=== PATIENT | male | born 1975 | race Caucasian/White ===

== ENCOUNTER 2021-06-21 05:11 | Inpatient (IN) | payer BC, OTHER ==
[~2021-06-21] VITALS: Ht 177.8 cm; Wt 101.2 kg
[2021-06-21 08:01] LABS: Basophils # (auto) 0 10 ^3/uL (0-0.2); Basophils % (auto) 0.4 % (0.0-2.0); Eosinophils # (auto) 0 10 ^3/uL (0-0.8); Eosinophils % (auto) 0.1 % (0.0-7.0); Hemoglobin 13.3 g/dL (13.5-17.5); Lymphocytes # (auto) 0.7 10 ^3/uL (0.4-5.4); Mean Corpuscular Hemoglobin 31.3 pg (28.0-32.0); Mean Corpuscular Volume 85.9 fL (80.0-100.0); Monocytes # (auto) 0.2 10 ^3/uL (0-1.3); Monocytes % (auto) 3.7 % (0.0-12.0); Neutrophils % (auto) 80.8 % (37.0-80.0); Nucleated Red Blood Cells % 0.4 %; Red Blood Cells 4.26 10^6/uL (4.5-5.90); Red Cell Distribution Width 13.4 % (11.8-14.3); White Blood Cell 4.9 10^3/uL (4.4-10.8)
[2021-06-21 08:05] LABS: Hematocrit 37.6 % (41.0-53.0)
[2021-06-21] MEDS ORDERED: ONDANSETRON HCL 4 MG/2 ML VIAL IV ONE (08:15)
[2021-06-21] MEDS ORDERED: cefTRIAXone 1GM/50ML D5W 50 ML IV ONE (08:15)
[2021-06-21] MEDS ORDERED: MORPHINE SULFATE 4 MG/ML SYR/VIAL IV ONE (08:15)
[2021-06-21] MEDS ORDERED: AZITHROMYCIN 500MG/ 250ML 250 ML IV ONE (08:15)
[2021-06-21 08:20] LABS: Albumin 2.8 g/dL (3.4-5.0); Calcium 7.3 mg/dL (8.5-10.1); Potassium 3.2 mmol/L (3.5-5.1)
[2021-06-21 08:25] LABS: BUN/Creatinine Ratio 16.2; Bilirubin, Total 0.6 mg/dL (0.2-1.0)
[2021-06-21] MEDS ORDERED: ACETAMINOPHEN 500 MG TAB PO ONE (12:00)
[2021-06-21] MEDS ORDERED: DexAMETHasone SOD PHOS 10MG/1ML VIAL INJ IV ONE (12:45)
[2021-06-21] MEDS ORDERED: PANTOPRAZOLE 40 MG/10 ML VIAL INJ IV ONE (17:45)
[2021-06-21] MEDS ORDERED: REMDESIVIR PER PHARMACY 0 ML IV SCH (21:00)
[2021-06-21] MEDS ORDERED: ACETAMINOPHEN 500 MG TAB PO PRN (21:00)
[2021-06-21] MEDS ORDERED: ONDANSETRON HCL 4 MG/2 ML VIAL IV PRN (21:00)
[2021-06-21] MEDS ORDERED: TEMAZEPAM 15 MG CAP PO PRN ×2 (21:00→22:45)
[2021-06-21] MEDS ORDERED: NITROGLYCERIN 0.4 MG SL TAB SL PRN (22:45)
[2021-06-21] MEDS ORDERED: MORPHINE SULFATE INJECTION 2 MG/ML SYRG IV PRN (22:45)
[2021-06-22] VITALS (7 sets, daily range): BP systolic 93–124; BP diastolic 50–76
[2021-06-22] MEDS ORDERED: HYDROcodone-ACET 5/325MG TAB PO PRN (01:15)
[2021-06-22] MEDS: ENOXAPARIN SOD 40 MG/0.4 ML SYRINGE SC SCH ×3 (02:03→21:31)
[2021-06-22] MEDS: HYDROcodone-ACET 5/325MG TAB PO PRN (02:04)
[2021-06-22 05:06] LABS: Basophils # (auto) 0.1 10 ^3/uL (0-0.2); Basophils % (auto) 1.1 % (0.0-2.0); Eosinophils # (auto) 0 10 ^3/uL (0-0.8); Eosinophils % (auto) 0.1 % (0.0-7.0); Hematocrit 39.2 % (41.0-53.0); Hemoglobin 13.5 g/dL (13.5-17.5); Lymphocytes # (auto) 0.6 10 ^3/uL (0.4-5.4); Lymphocytes % (auto) 11.6 % (10.0-50.0); Mean Corpuscular Hemoglobin 30.1 pg (28.0-32.0); Mean Corpuscular Hgb Conc. 34.5 g/dL (32.0-36.0); Mean Corpuscular Volume 87.3 fL (80.0-100.0); Monocytes # (auto) 0.3 10 ^3/uL (0-1.3); Monocytes % (auto) 6.5 % (0.0-12.0); Neutrophils # (auto) 3.9 10 ^3/uL (1.6-8.6); Neutrophils % (auto) 80.7 % (37.0-80.0); Nucleated Red Blood Cells % 0.2 %; Red Blood Cells 4.49 10^6/uL (4.5-5.90); Red Cell Distribution Width 13.4 % (11.8-14.3); White Blood Cell 4.8 10^3/uL (4.4-10.8)
[2021-06-22 05:27] LABS: Albumin 2.8 g/dL (3.4-5.0); Calcium 7.3 mg/dL (8.5-10.1); Potassium 3.7 mmol/L (3.5-5.1)
[2021-06-22 05:31] LABS: Bilirubin, Total 0.6 mg/dL (0.2-1.0); Total Protein 5.7 g/dL (6.4-8.2)
[2021-06-22] MEDS ORDERED: PRE1T PO (06:56)
[2021-06-22] MEDS ORDERED: AZIT250T9 PO (06:56)
[2021-06-22] MEDS ORDERED: CEFU500T43 PO (06:56)
[2021-06-22] MEDS ORDERED: cefTRIAXone 1GM/50ML D5W 50 ML IV SCH (09:00)
[2021-06-22] MEDS ORDERED: REMDESIVIR 200 MG in NS 210ml LOADING DOSE ADULT IV ONE (09:30)
[2021-06-22] MEDS: DexAMETHasone SOD PHOS 10MG/1ML VIAL INJ IV SCH (09:44)
[2021-06-22] MEDS: PANTOPRAZOLE 40 MG TAB PO SCH (09:44)
[2021-06-22] MEDS: ZINC SULFATE 220mg CAP or TAB PO SCH (09:44)
[2021-06-22] MEDS: CHOLECALCIFEROL (VITD3) 2,000 UNIT CAP/TAB PO SCH (09:45)
[2021-06-22] MEDS: IVERMECTIN 3 MG TAB PO SCH (09:45)
[2021-06-22] MEDS: ASCORBIC ACID 1,000 MG TAB PO SCH (09:45)
[2021-06-22] MEDS ORDERED: AZITHROMYCIN 500MG/ 250ML 250 ML IV SCH (10:00)
[2021-06-22] MEDS ORDERED: cefTRIAXone 1GM/50ML D5W 50 ML IV ONE (10:30)
[2021-06-22] MEDS ORDERED: MORPHINE SULFATE INJECTION 2 MG/ML SYRG IV ONE (11:15)
[2021-06-22] MEDS ORDERED: AZITHROMYCIN 500MG/ 250ML 250 ML IV ONE (11:30)
[2021-06-22] MEDS: MORPHINE SULFATE INJECTION 2 MG/ML SYRG IV PRN ×2 (16:55→21:33)
[2021-06-22] MEDS: ALBUTEROL SULF HFA 90MCG INH 200DOSE IN PRN (20:30)
[2021-06-23] MEDS: MORPHINE SULFATE INJECTION 2 MG/ML SYRG IV PRN ×6 (01:35→22:19)
[2021-06-23 05:00] VITALS: BP 107/70
[2021-06-23 06:28] LABS: Potassium 3.9 mmol/L (3.5-5.1)
[2021-06-23 06:35] LABS: Albumin 2.6 g/dL (3.4-5.0); BUN/Creatinine Ratio 23.1
[2021-06-23 06:37] LABS: Bilirubin, Total 0.6 mg/dL (0.2-1.0); Total Protein 5.4 g/dL (6.4-8.2)
[2021-06-23 09:00] VITALS: BP 104/71
[2021-06-23] MEDS: ALBUTEROL SULF HFA 90MCG INH 200DOSE IN PRN ×2 (09:10→22:06)
[2021-06-23] MEDS: cefTRIAXone 1GM/50ML D5W 50 ML IV SCH (09:21)
[2021-06-23] MEDS: DexAMETHasone SOD PHOS 10MG/1ML VIAL INJ IV SCH (09:21)
[2021-06-23] MEDS: ENOXAPARIN SOD 40 MG/0.4 ML SYRINGE SC SCH ×2 (09:22→22:20)
[2021-06-23] MEDS: ZINC SULFATE 220mg CAP or TAB PO SCH (09:22)
[2021-06-23] MEDS: IVERMECTIN 3 MG TAB PO SCH (09:22)
[2021-06-23] MEDS: CHOLECALCIFEROL (VITD3) 2,000 UNIT CAP/TAB PO SCH (09:22)
[2021-06-23] MEDS: PANTOPRAZOLE 40 MG TAB PO SCH (09:22)
[2021-06-23] MEDS: ASCORBIC ACID 1,000 MG TAB PO SCH (09:22)
[2021-06-23] MEDS: AZITHROMYCIN 500MG/ 250ML 250 ML IV SCH (09:56)
[2021-06-23 13:00] VITALS: BP 106/71
[2021-06-23] MEDS: REMDESIVIR 100mg 100 MG in SODIUM CHL 0.9% 230 ML IV SCH (15:21)
[2021-06-23 17:00] VITALS: BP 114/79
[2021-06-23] MEDS: PROMETHAZINE W/CODEINE 5 ML ORAL SYRUP PO PRN (17:52)
[2021-06-23 22:00] VITALS: BP 104/65
[2021-06-24] MEDS: MORPHINE SULFATE INJECTION 2 MG/ML SYRG IV PRN ×3 (02:13→10:41)
[2021-06-24] MEDS: PROMETHAZINE W/CODEINE 5 ML ORAL SYRUP PO PRN ×2 (04:28→09:35)
[2021-06-24 05:00] VITALS: BP 105/61
[2021-06-24 06:13] LABS: Potassium 3.8 mmol/L (3.5-5.1)
[2021-06-24 06:25] LABS: Albumin 2.5 g/dL (3.4-5.0); BUN/Creatinine Ratio 20.9; Calcium 7.8 mg/dL (8.5-10.1)
[2021-06-24 06:27] LABS: Bilirubin, Total 0.7 mg/dL (0.2-1.0); Total Protein 5.4 g/dL (6.4-8.2)
[2021-06-24 09:00] VITALS: BP 108/66
[2021-06-24] MEDS: cefTRIAXone 1GM/50ML D5W 50 ML IV SCH (09:16)
[2021-06-24] MEDS: DexAMETHasone SOD PHOS 10MG/1ML VIAL INJ IV SCH (09:16)
[2021-06-24] MEDS: ASCORBIC ACID 1,000 MG TAB PO SCH (09:17)
[2021-06-24] MEDS: CHOLECALCIFEROL (VITD3) 2,000 UNIT CAP/TAB PO SCH (09:17)
[2021-06-24] MEDS: ZINC SULFATE 220mg CAP or TAB PO SCH (09:17)
[2021-06-24] MEDS: ENOXAPARIN SOD 40 MG/0.4 ML SYRINGE SC SCH (09:17)
[2021-06-24] MEDS: PANTOPRAZOLE 40 MG TAB PO SCH (09:17)
[2021-06-24] MEDS: IVERMECTIN 3 MG TAB PO SCH (09:17)
[2021-06-24] MEDS: AZITHROMYCIN 500MG/ 250ML 250 ML IV SCH (10:41)
[2021-06-24] MEDS ORDERED: ENOXAPARIN SOD 100 MG/1 ML SYRINGE SC ONE (12:30)
[2021-06-24] MEDS ORDERED: PANTOPRAZOLE 40 MG/10 ML VIAL INJ IV ONE (12:30)
[2021-06-24] MEDS ORDERED: BUDESONIDE (INHALATION) 0.5 MG/2 ML NEB NEB ONE (12:30)
[2021-06-24 13:00] VITALS: BP 116/72
[2021-06-24 14:32] LABS: Urine Bacteria NONE SEEN /hpf (None Seen); Urine Blood Negative /uL (Negative); Urine Specific Gravity 1.046 (1.001-1.035); Urine WBC 2 /hpf (0 - 3)
[2021-06-24] MEDS: HYDROmorphone HCL 2 MG/ML VL IV PRN ×2 (15:00→19:52)
[2021-06-24] MEDS: REMDESIVIR 100mg 100 MG in SODIUM CHL 0.9% 230 ML IV SCH (15:21)
[2021-06-24 17:00] VITALS: BP 113/72
[2021-06-24] MEDS: HYDROcodone-ACET 5/325MG TAB PO PRN (17:24)
[2021-06-24] MEDS: LIDOCAINE 5% TOPICAL PATCH TOP SCH (17:24)
[2021-06-24] MEDS ORDERED: TOCILIZUMAB 400 MG in SODIUM CHL 0.9% 80 ML IV ONE (20:00)
[2021-06-24] MEDS: ENOXAPARIN SOD 60 MG/0.6 ML SYRINGE SC SCH (21:12)
[2021-06-24 22:00] VITALS: BP 113/66
[2021-06-24] MEDS ORDERED: BUDESONIDE (INHALATION) 0.5 MG/2 ML NEB NEB SCH (22:00)
[2021-06-24] MEDS ORDERED: ENOXAPARIN SOD 100 MG/1 ML SYRINGE SC SCH (22:00)
[2021-06-24] MEDS: ALBUTEROL SULF HFA 90MCG INH 200DOSE IN PRN (22:21)
[2021-06-24] MEDS: BUDESONIDE (INHALATION) 180 MCG IH IN SCH (22:21)
[2021-06-25] MEDS: HYDROmorphone HCL 2 MG/ML VL IV PRN ×7 (00:12→23:16)
[2021-06-25 05:00] VITALS: BP 110/64
[2021-06-25] MEDS: BUDESONIDE (INHALATION) 180 MCG IH IN SCH ×2 (05:55→20:46)
[2021-06-25] MEDS: ALBUTEROL SULF HFA 90MCG INH 200DOSE IN PRN ×2 (05:55→20:46)
[2021-06-25 06:10] LABS: Basophils # (auto) 0 10 ^3/uL (0-0.2); Eosinophils # (auto) 0 10 ^3/uL (0-0.8); Eosinophils % (auto) 0.5 % (0.0-7.0); Lymphocytes # (auto) 0.9 10 ^3/uL (0.4-5.4); Mean Corpuscular Volume 88.8 fL (80.0-100.0); Neutrophils # (auto) 3.8 10 ^3/uL (1.6-8.6); White Blood Cell 5.1 10^3/uL (4.4-10.8)
[2021-06-25 06:12] LABS: Basophils % (auto) 0.3 % (0.0-2.0); Hematocrit 35.4 % (41.0-53.0); Hemoglobin 12.9 g/dL (13.5-17.5); Lymphocytes % (auto) 18.1 % (10.0-50.0); Mean Corpuscular Hemoglobin 32.4 pg (28.0-32.0); Monocytes # (auto) 0.4 10 ^3/uL (0-1.3); Neutrophils % (auto) 74.1 % (37.0-80.0); Nucleated Red Blood Cells % 0.2 %; Red Blood Cells 3.99 10^6/uL (4.5-5.90); Red Cell Distribution Width 13.4 % (11.8-14.3)
[2021-06-25 06:27] LABS: Mean Corpuscular Hgb Conc. 36.5 g/dL (32.0-36.0)
[2021-06-25 06:38] LABS: Albumin 2.5 g/dL (3.4-5.0); Calcium 7.8 mg/dL (8.5-10.1)
[2021-06-25 06:41] LABS: BUN/Creatinine Ratio 21.3
[2021-06-25 06:44] LABS: Bilirubin, Total 0.7 mg/dL (0.2-1.0); Total Protein 5.2 g/dL (6.4-8.2)
[2021-06-25 09:00] VITALS: BP 122/83
[2021-06-25] MEDS: DexAMETHasone SOD PHOS 10MG/1ML VIAL INJ IV SCH (09:11)
[2021-06-25] MEDS: cefTRIAXone 1GM/50ML D5W 50 ML IV SCH (09:11)
[2021-06-25] MEDS: PANTOPRAZOLE 40 MG/10 ML VIAL INJ IV SCH (09:12)
[2021-06-25] MEDS: ZINC SULFATE 220mg CAP or TAB PO SCH (09:12)
[2021-06-25] MEDS: CHOLECALCIFEROL (VITD3) 2,000 UNIT CAP/TAB PO SCH (09:12)
[2021-06-25] MEDS: IVERMECTIN 3 MG TAB PO SCH (09:12)
[2021-06-25] MEDS: ASCORBIC ACID 1,000 MG TAB PO SCH (09:12)
[2021-06-25] MEDS: LIDOCAINE 5% TOPICAL PATCH TOP SCH (09:13)
[2021-06-25] MEDS: ENOXAPARIN SOD 60 MG/0.6 ML SYRINGE SC SCH ×2 (09:13→21:55)
[2021-06-25] MEDS: AZITHROMYCIN 500MG/ 250ML 250 ML IV SCH (10:14)
[2021-06-25] MEDS ORDERED: DOCUSATE SOD 100 MG CAP PO ONE (12:00)
[2021-06-25] MEDS ORDERED: FUROSEMIDE 20 MG/2 ML VIAL IV ONE (12:15)
[2021-06-25] MEDS ORDERED: POTASSIUM CHL 20 Meq TABLET PO ONE (12:15)
[2021-06-25 13:00] VITALS: BP 127/81
[2021-06-25] MEDS: REMDESIVIR 100mg 100 MG in SODIUM CHL 0.9% 230 ML IV SCH (15:30)
[2021-06-25 16:51] VITALS: BP 116/74
[2021-06-25] MEDS: DOCUSATE SOD 100 MG CAP PO SCH (21:54)
[2021-06-25 22:00] VITALS: BP 124/76
[2021-06-26] MEDS: HYDROcodone-ACET 5/325MG TAB PO PRN (05:22)
[2021-06-26] MEDS: ONDANSETRON HCL 4 MG/2 ML VIAL IV PRN ×2 (05:23→17:44)
[2021-06-26 05:59] VITALS: BP 126/80
[2021-06-26 06:50] LABS: Potassium 4.1 mmol/L (3.5-5.1)
[2021-06-26 07:00] LABS: Albumin 2.9 g/dL (3.4-5.0); BUN/Creatinine Ratio 23.4; Bilirubin, Total 0.8 mg/dL (0.2-1.0); Calcium 8.1 mg/dL (8.5-10.1)
[2021-06-26] MEDS: BUDESONIDE (INHALATION) 180 MCG IH IN SCH ×2 (07:40→22:14)
[2021-06-26] MEDS: ALBUTEROL SULF HFA 90MCG INH 200DOSE IN PRN ×2 (08:36→22:14)
[2021-06-26 08:46] VITALS: BP 102/63
[2021-06-26] MEDS: PANTOPRAZOLE 40 MG/10 ML VIAL INJ IV SCH (09:31)
[2021-06-26] MEDS: cefTRIAXone 1GM/50ML D5W 50 ML IV SCH (09:31)
[2021-06-26] MEDS: DexAMETHasone SOD PHOS 10MG/1ML VIAL INJ IV SCH (09:31)
[2021-06-26] MEDS: ZINC SULFATE 220mg CAP or TAB PO SCH (09:32)
[2021-06-26] MEDS: ASCORBIC ACID 1,000 MG TAB PO SCH (09:32)
[2021-06-26] MEDS: LIDOCAINE 5% TOPICAL PATCH TOP SCH (09:32)
[2021-06-26] MEDS: IVERMECTIN 3 MG TAB PO SCH (09:32)
[2021-06-26] MEDS: DOCUSATE SOD 100 MG CAP PO SCH ×2 (09:32→21:08)
[2021-06-26] MEDS: ENOXAPARIN SOD 60 MG/0.6 ML SYRINGE SC SCH ×2 (09:33→21:08)
[2021-06-26] MEDS: CHOLECALCIFEROL (VITD3) 2,000 UNIT CAP/TAB PO SCH (09:33)
[2021-06-26] MEDS: AZITHROMYCIN 500MG/ 250ML 250 ML IV SCH (11:16)
[2021-06-26] MEDS: HYDROmorphone HCL 2 MG/ML VL IV PRN (11:19)
[2021-06-26] MEDS ORDERED: POTASSIUM CHL 20 Meq TABLET PO ONE (11:45)
[2021-06-26] MEDS ORDERED: FUROSEMIDE 20 MG/2 ML VIAL IV ONE (11:45)
[2021-06-26 12:50] VITALS: BP 120/75
[2021-06-26] MEDS: REMDESIVIR 100mg 100 MG in SODIUM CHL 0.9% 230 ML IV SCH (15:24)
[2021-06-26] MEDS: MORPHINE SULFATE INJECTION 2 MG/ML SYRG IV PRN ×2 (15:27→21:14)
[2021-06-26 17:00] VITALS: BP 120/71
[2021-06-26 22:00] VITALS: BP 107/61
[2021-06-27 05:00] VITALS: BP 105/74
[2021-06-27 05:45] LABS: Albumin 2.9 g/dL (3.4-5.0); Calcium 8.4 mg/dL (8.5-10.1); Potassium 4.2 mmol/L (3.5-5.1)
[2021-06-27 05:48] LABS: Bilirubin, Total 0.8 mg/dL (0.2-1.0); Total Protein 5.8 g/dL (6.4-8.2)
[2021-06-27] MEDS: MORPHINE SULFATE INJECTION 2 MG/ML SYRG IV PRN ×4 (06:09→22:29)
[2021-06-27] MEDS: ALBUTEROL SULF HFA 90MCG INH 200DOSE IN PRN ×2 (07:53→19:51)
[2021-06-27] MEDS: BUDESONIDE (INHALATION) 180 MCG IH IN SCH ×2 (07:53→18:15)
[2021-06-27] MEDS: ENOXAPARIN SOD 60 MG/0.6 ML SYRINGE SC SCH (08:31)
[2021-06-27] MEDS: DexAMETHasone SOD PHOS 10MG/1ML VIAL INJ IV SCH (08:31)
[2021-06-27] MEDS: cefTRIAXone 1GM/50ML D5W 50 ML IV SCH (08:31)
[2021-06-27] MEDS: ZINC SULFATE 220mg CAP or TAB PO SCH (08:32)
[2021-06-27] MEDS: ASCORBIC ACID 1,000 MG TAB PO SCH (08:32)
[2021-06-27] MEDS: PANTOPRAZOLE 40 MG TAB PO SCH (08:32)
[2021-06-27] MEDS: CHOLECALCIFEROL (VITD3) 2,000 UNIT CAP/TAB PO SCH (08:32)
[2021-06-27] MEDS: DOCUSATE SOD 100 MG CAP PO SCH ×2 (08:32→22:28)
[2021-06-27] MEDS: LIDOCAINE 5% TOPICAL PATCH TOP SCH (09:13)
[2021-06-27 13:00] VITALS: BP 117/73
[2021-06-27 17:00] VITALS: BP 111/72
[2021-06-27 22:00] VITALS: BP 111/64
[2021-06-27] MEDS: ENOXAPARIN SOD 40 MG/0.4 ML SYRINGE SC SCH (22:28)
[2021-06-28 05:00] VITALS: BP 102/60
[2021-06-28] MEDS: BUDESONIDE (INHALATION) 180 MCG IH IN SCH (05:52)
[2021-06-28] MEDS: ALBUTEROL SULF HFA 90MCG INH 200DOSE IN PRN (05:52)
[2021-06-28 06:01] LABS: Potassium 4.2 mmol/L (3.5-5.1)
[2021-06-28 06:06] LABS: Albumin 2.9 g/dL (3.4-5.0); BUN/Creatinine Ratio 21.4; Calcium 8.6 mg/dL (8.5-10.1)
[2021-06-28 06:08] LABS: Bilirubin, Total 0.8 mg/dL (0.2-1.0); Total Protein 5.7 g/dL (6.4-8.2)
[2021-06-28 08:15] VITALS: BP 125/75
[2021-06-28] MEDS: cefTRIAXone 1GM/50ML D5W 50 ML IV SCH (08:51)
[2021-06-28 09:00] VITALS: BP 101/65
[2021-06-28] MEDS: ZINC SULFATE 220mg CAP or TAB PO SCH (09:50)
[2021-06-28] MEDS: DOCUSATE SOD 100 MG CAP PO SCH (09:50)
[2021-06-28] MEDS: DexAMETHasone SOD PHOS 10MG/1ML VIAL INJ IV SCH (09:50)
[2021-06-28] MEDS: PANTOPRAZOLE 40 MG TAB PO SCH (09:51)
[2021-06-28] MEDS: CHOLECALCIFEROL (VITD3) 2,000 UNIT CAP/TAB PO SCH (09:51)
[2021-06-28] MEDS: ASCORBIC ACID 1,000 MG TAB PO SCH (09:51)
[2021-06-28] MEDS: ENOXAPARIN SOD 40 MG/0.4 ML SYRINGE SC SCH (09:51)
[2021-06-28] MEDS: LIDOCAINE 5% TOPICAL PATCH TOP SCH (09:51)
[2021-06-28] MEDS: MORPHINE SULFATE INJECTION 2 MG/ML SYRG IV PRN ×2 (09:51→14:59)
[2021-06-28 13:00] VITALS: BP 112/59
[2021-06-28 17:00] VITALS: BP 109/71
== END 2021-06-28 18:59 | disposition home or self-care (01) | DRG 871 ==
LOC: ER 05:11 → EDBD 05:11 → TELE-EAST 22:37
PROVIDERS: ADMIT Nurse Practitioner; ATTEND Internal Medicine
PROC: XW033E5 Introduction of Remdesivir Anti-infective into Peripheral Vein, Percutaneous Approach, New Technology Group 5 (ICD-10-PCS; principal; 2021-06-22)
PROC: XW033H5 Introduction of Tocilizumab into Peripheral Vein, Percutaneous Approach, New Technology Group 5 (ICD-10-PCS; 2021-06-24)
DX: A41.89 Other specified sepsis (principal); U07.1 COVID-19; J12.82 Pneumonia due to coronavirus disease 2019; J96.01 Acute respiratory failure with hypoxia; E66.9 Obesity, unspecified; R73.9 Hyperglycemia, unspecified; D89.839 Cytokine release syndrome, grade unspecified; D69.6 Thrombocytopenia, unspecified; K76.0 Fatty (change of) liver, not elsewhere classified; R16.0 Hepatomegaly, not elsewhere classified; Z98.84 Bariatric surgery status; Z79.82 Long term (current) use of aspirin; Z68.32 Body mass index [BMI] 32.0-32.9, adult; Z23 Encounter for immunization
CPT/HCPCS: 36415; 36600; 71045; 71275; 74176; 80053; 81001; 82728; 82805; 83036; 83605; 83615; 83735; 84484; 85025; 85379; 86141; 87040; 87426; 93005; 94640; 96365; 96367; 96375; 99291; C9113; G0378; J0696; J1100; J2405